=== PATIENT | male | born 1960 | race Caucasian/White ===

== ENCOUNTER → 2019-08-04 09:52 | Outpatient (CLI) | payer BC, SELFPAY ==
--- NOTE | 2019-08-04 10:00 | CT_ITS ---
PROCEDURE: CT LUNG SCREENING CLINICAL INDICATION: HX TOBACCO USE COMPARISON: No exams were available for comparison TECHNIQUE: The exam was performed on a GE Light Speed [address] scanner using 2.90 mGy CTDI. A low dose helical CT CHEST was performed on a multi-detector scanner. All CT scans at the facility use one or more dose reduction, viz: automated exposure control, ma/kV adjustment per patient size (including targeted exams where dose is matched to indication, i.e. head), or iterative reconstruction technique. The LDCT was performed in a facility that meets the criteria for the screening program. Data regarding this exam was submitted to [employer] which is an approved registry. The order for this exam indicates that it came as a result of a lung cancer screening counseling shard decision-making visit that included all the elements required of such a visit including smoking cessation. The radiologist interpreting this exam meets the CMS criteria for the LDCT lung cancer screening program. The exam is reported using the Lung-RADS classification scale and reported to the ACR registry. NOTE: This study was performed for the specific purposes of lung cancer screening and is not an alternative to diagnostic chest CT. RADIATION DOSE: CTDI vol(CT dose Index-volume) = 2.90mG DLP (Dose Length Product) = 123.76 mGcm FINDINGS: There is scattered small mediastinal lymph nodes. Coronary artery calcifications and/or stents are noted. COPD. Centrilobular emphysema. 3 mm nodule right middle lobe. Small parenchymal opacity is present in the left lower lobe in the subpleural region at 5 mm the measured due to an area of scarring. Calcified granuloma is present in the superior segment of left lower lobe. The there is gynecomastia. Coarse calcification noted in the pancreatic head consistent with chronic pancreatitis OTHER FINDINGS: No other pertinent findings evident. IMPRESSION: Lung rads category 2 benign findings. Centrilobular emphysema, coronary artery calcification Recommend 12 month LDCT follow-up Dictated by: Charles Harden MD 08/07/2019 06:22 Electronically signed by Charles Harden MD in [place] 08/07/2019 06:22
--- NOTE | 2019-08-04 10:30 | US_ITS ---
PROCEDURE: US THYROID CLINICAL INDICATION: THYROID NODULE COMPARISON: No exams were available for comparison FINDINGS: Right lobe: 4.4 x 1.7 x 2 cm. Homogeneous echogenicity. No discrete nodule Left lobe: 4.3 x 1.6 x 1.6 cm. Homogeneous echogenicity no discrete nodule Isthmus: Unremarkable Additional findings: IMPRESSION: Thyroid gland upper limits of normal. No nodules apparent Dictated by: Charles Harden MD 08/04/2019 16:08 Electronically signed by Charles Harden MD in [facility] 08/04/2019 16:08
== END ==
PROVIDERS: PCP Nurse Practitioner; Visit Provider Nurse Practitioner
DX: E04.1 Nontoxic single thyroid nodule (principal); Z12.2 Encounter for screening for malignant neoplasm of respiratory organs; Z87.891 Personal history of nicotine dependence
CPT/HCPCS: 76536

== ENCOUNTER → 2019-09-15 13:51 | Outpatient (CLI) | payer BC, SELFPAY ==
--- NOTE | 2019-09-15 13:55 | ECG_ITS ---
APPROVED REPORT Exam: Resting ECG HR:59 bpm ECG Measurements Heart Rate 59 AXES GA 170 P 77 QRSd 86 QRS 84 QT 410 T 52 QTc 405 <Conclusion> Sinus bradycardia ,Incomplete RBBB Abnormal ECG Electronically signed by : Alirio Ga, 09/15/2019 18:18:47
== END ==
PROVIDERS: PCP Nurse Practitioner; Visit Provider Surgery
DX: K81.1 Chronic cholecystitis (principal)
CPT/HCPCS: 93005